=== PATIENT | male | born 1965 | race Caucasian/White ===

== ENCOUNTER → 2017-08-13 | Outpatient (CLI) | payer BC | LOC: RAD 09:35 | DX: S22.41XA Multiple fractures of ribs, right side, initial encounter for closed fracture (principal); J98.11 Atelectasis; Z96.9 Presence of functional implant, unspecified ==

== ENCOUNTER → 2018-04-15 | Outpatient (CLI) | payer BC | LOC: RAD 08:32 | DX: S22.31XA Fracture of one rib, right side, initial encounter for closed fracture (principal); R91.1 Solitary pulmonary nodule; Z87.81 Personal history of (healed) traumatic fracture | CPT/HCPCS: Q9967 ==

== ENCOUNTER → 2018-05-23 | Outpatient (CLI) | payer OTHER, BC ==
[2018-05-23 09:33] LABS: CALCIUM 9.7 mg/dL (8.4-10.2)
== END ==
LOC: RAD 08:23
PROVIDERS: Internal Medicine
DX: I77.810 Thoracic aortic ectasia (principal); S22.31XD Fracture of one rib, right side, subsequent encounter for fracture with routine healing; S42.002D Fracture of unspecified part of left clavicle, subsequent encounter for fracture with routine healing; R59.0 Localized enlarged lymph nodes; R91.8 Other nonspecific abnormal finding of lung field; R09.1 Pleurisy; Z98.890 Other specified postprocedural states
CPT/HCPCS: Q9967

== ENCOUNTER → 2020-08-15 | Outpatient (CLI) | payer BC ==
[2020-08-15 10:15] LABS: HEMATOCRIT 50.9 % (42.0-52.0); HEMOGLOBIN 16.9 g/dL (13.5-18.0); MEAN CELL VOLUME 84 fl (78-100); MEAN CORPUSCULAR HEMOGLOBIN 28 pg (27-31); MEAN CORPUSCULAR HGB CONC 33 g/dL (33-37); MEAN PLATELET VOLUME 11.9 fl (7.4-10.4); PLATELET COUNT 155 K/mm3 (130-400); RED BLOOD COUNT 6.04 M/mm3 (4.20-5.60); WHITE BLOOD COUNT 6.4 K/mm3 (4.8-10.8)
[2020-08-15 10:17] LABS: POTASSIUM 4.4 mmol/L (3.5-5.1)
[2020-08-15 10:18] LABS: ALBUMIN 4.3 g/dL (3.5-5.0)
[2020-08-15 10:19] LABS: CALCIUM 9.3 mg/dL (8.3-10.5)
[2020-08-15 10:20] LABS: TOTAL PROTEIN 7.3 g/dL (6.4-8.3)
[2020-08-15 10:22] LABS: TOTAL BILIRUBIN 0.5 mg/dL (0.2-1.2)
[2020-08-15 10:34] LABS: LYMPHOCYTE 32 % (20-51); MONOCYTE 13 % (3-10); NEUTROPHILS 42 % (42-75)
[2020-08-15 11:04] LABS: ERYTHROCYTE SEDIMENTATION RATE 1 mm/hr (0-20)
== END ==
LOC: LAB 09:30
PROVIDERS: Internal Medicine
DX: Z00.00 Encounter for general adult medical examination without abnormal findings (principal); Z12.5 Encounter for screening for malignant neoplasm of prostate

== ENCOUNTER → 2021-03-02 | Outpatient (CLI) | payer OTHER, BC | LOC: RAD 15:30 | DX: R51.9 Headache, unspecified (principal); M54.2 Cervicalgia; V48.9XXA Unspecified car occupant injured in noncollision transport accident in traffic accident, initial encounter ==

== ENCOUNTER → 2022-08-27 | Day surgery (SDC) | payer OTHER | LOC: MSO 08:44 | DX: Z12.11 Encounter for screening for malignant neoplasm of colon (principal); R10.11 Right upper quadrant pain | CPT/HCPCS: 00812; J2704; J7120 ==

== ENCOUNTER → 2022-08-31 | Outpatient (CLI) | payer OTHER | LOC: RAD 12:13 | DX: R07.89 Other chest pain (principal); Z87.81 Personal history of (healed) traumatic fracture ==

== ENCOUNTER → 2023-07-16 | Outpatient (CLI) | payer OTHER ==
[~2023-07-16] MED LIST: PREDNISONE20 M1 PO; SIMVASTATIN10 M1; ZESTRIL10 M1
[2023-07-16 15:34] LABS: BASO # 0.04 K/mm3 (0.02-0.10); EOS # 0.53 K/mm3 (0.04-0.40); EOS % 4.9 % (0.0-4.0); HEMATOCRIT 50.5 % (42.0-52.0); HEMOGLOBIN 17.2 g/dL (13.5-18.0); LYMPH# 3.35 K/mm3 (1.50-4.00); MEAN CELL VOLUME 84 fl (78-100); MEAN CORPUSCULAR HEMOGLOBIN 29 pg (27-31); MEAN CORPUSCULAR HGB CONC 34 g/dL (33-37); MEAN PLATELET VOLUME 10.6 fl (7.4-10.4); MONO # 1.21 K/mm3 (0.20-0.80); NEU # 5.63 K/mm3 (1.40-6.50); PLATELET COUNT 232 K/mm3 (130-400); RED BLOOD COUNT 6.02 M/mm3 (4.20-5.60); RED CELL DISTRIBUTION WIDTH 12.4 % (11.5-14.5); WHITE BLOOD COUNT 10.8 K/mm3 (4.8-10.8)
[2023-07-16 15:39] LABS: ALBUMIN 4.6 g/dL (3.5-5.0)
[2023-07-16 15:40] LABS: CALCIUM 9.8 mg/dL (8.3-10.5)
[2023-07-16 15:41] LABS: TOTAL PROTEIN 7.8 g/dL (6.4-8.3)
[2023-07-16 15:43] LABS: TOTAL BILIRUBIN 0.6 mg/dL (0.2-1.2)
[2023-07-16 15:48] LABS: MAGNESIUM 2.17 mg/dL (1.60-2.60)
== END ==
LOC: LAB 15:21
PROVIDERS: Internal Medicine
DX: Z00.00 Encounter for general adult medical examination without abnormal findings (principal); Z12.5 Encounter for screening for malignant neoplasm of prostate

== ENCOUNTER → 2024-07-10 | Outpatient (CLI) | payer OTHER ==
[2024-07-10 08:57] LABS: BASO # 0.03 K/mm3 (0.02-0.10); EOS # 0.79 K/mm3 (0.04-0.40); EOS % 10.2 % (0.0-4.0); HEMATOCRIT 52.4 % (42.0-52.0); HEMOGLOBIN 17.6 g/dL (13.5-18.0); LYMPH# 2.33 K/mm3 (1.50-4.00); MEAN CELL VOLUME 86 fl (78-100); MEAN CORPUSCULAR HEMOGLOBIN 29 pg (27-31); MEAN CORPUSCULAR HGB CONC 34 g/dL (33-37); MEAN PLATELET VOLUME 10.7 fl (7.4-10.4); MONO # 0.81 K/mm3 (0.20-0.80); NEU # 3.76 K/mm3 (1.40-6.50); PLATELET COUNT 220 K/mm3 (130-400); RED BLOOD COUNT 6.13 M/mm3 (4.20-5.60); RED CELL DISTRIBUTION WIDTH 12.4 % (11.5-14.5); WHITE BLOOD COUNT 7.7 K/mm3 (4.8-10.8)
[2024-07-10 09:02] LABS: ALBUMIN 4.5 g/dL (3.5-5.0)
[2024-07-10 09:04] LABS: TOTAL PROTEIN 7.9 g/dL (6.4-8.3)
[2024-07-10 09:06] LABS: TOTAL BILIRUBIN 0.8 mg/dL (0.2-1.2)
[2024-07-10 09:11] LABS: MAGNESIUM 2.07 mg/dL (1.60-2.60)
== END ==
LOC: LAB 08:35
PROVIDERS: Internal Medicine
DX: Z00.00 Encounter for general adult medical examination without abnormal findings (principal); Z12.5 Encounter for screening for malignant neoplasm of prostate; Z12.11 Encounter for screening for malignant neoplasm of colon; I10 Essential (primary) hypertension; K90.9 Intestinal malabsorption, unspecified; E78.2 Mixed hyperlipidemia; R73.9 Hyperglycemia, unspecified; M25.561 Pain in right knee; M25.562 Pain in left knee; M79.641 Pain in right hand; M79.642 Pain in left hand

== ENCOUNTER → 2024-07-17 | Outpatient (CLI) | payer OTHER | LOC: RAD 08:56 | DX: M47.26 Other spondylosis with radiculopathy, lumbar region (principal); M41.86 Other forms of scoliosis, lumbar region ==